=== PATIENT | female | born 2000 | race Caucasian/White ===

== ENCOUNTER 2022-06-08 07:53 | Emergency (ER) | payer OTHER ==
[~2022-06-08] VITALS: Ht 157.5 cm; Wt 52.3 kg
[2022-06-08] MEDS ORDERED: TETRAHYDROZOLINE HCL 0.05% 15 ML OPHTHALMIC SOLUTION OU ONE (09:30)
[2022-06-08 10:04] VITALS: BP 119/72
== END 2022-06-08 10:11 | disposition home or self-care (01) ==
LOC: EMS 08:00
DX: H10.11 Acute atopic conjunctivitis, right eye (principal); F17.210 Nicotine dependence, cigarettes, uncomplicated; Z91.013 Allergy to seafood
CPT/HCPCS: 99173; 99283

== ENCOUNTER 2024-12-15 08:47 | Emergency (ER) | payer OTHER ==
[~2024-12-15] VITALS: Ht 157.5 cm; Wt 58.2 kg
[2024-12-15 08:51] VITALS: TEMP 97.5
[2024-12-15] MEDS ORDERED: ASPI-1450 PO (08:54)
[2024-12-15] MEDS: ACETAMINOPHEN 500 MG TABLET PO ONE (09:09)
[2024-12-15 09:20] LABS: PLATELET COUNT (AUTO) 240 K/uL (150-450); RED BLOOD CELL COUNT(AUTO) 4.08 MIL/uL (4.00-5.20); RED CELL DISTRIBUTION WIDTH 13.5 % (11.5-14.5); WHITE BLOOD COUNT (AUTO) 13.1 K/uL (4.5-11.0)
[2024-12-15 09:22] LABS: COVID AG,FIA SOURCE NASAL SWAB
[2024-12-15 09:28] LABS: CALCIUM, TOTAL 8.8 mg/dL (8.8-10.5); CREATININE 0.60 mg/dL (0.60-1.30); GLOMERULAR FILTR. RATE CALC > 60 mL/min (>60); GLUCOSE,RANDOM 84 mg/dL (70-110); SODIUM SERUM 135 mmol/L (136-145); UREA NITROGEN, BLOOD 8 mg/dL (7-18)
[2024-12-15 09:31] LABS: APPEARANCE,URINE HAZY (CLEAR); GLUCOSE, URINE (UA) NEGATIVE (NEGATIVE); LEUKOCYTE ESTERASE ,URINE LARGE (NEGATIVE); NITRATE,URINE NEGATIVE (NEGATIVE); OCCULT BLOOD,URINE NEGATIVE (NEGATIVE); SPECIFIC GRAVITIY, URINE 1.029 (1.003-1.030)
[2024-12-15 09:36] LABS: RAPID GROUP A STREP NEGATIVE (NEGATIVE)
[2024-12-15 09:40] LABS: SARS-COV2 (COVID) ANTIGEN,FIA Negative (Negative)
[2024-12-15 09:46] LABS: SQUAMOUS EPITHELIAL CELL,UR Many /LPF (None Seen)
[2024-12-15 09:49] LABS: INFLUENZA TYPE A NEGATIVE FOR TYPE A (NEGATIVE); INFLUENZA TYPE B NEGATIVE FOR TYPE B (NEGATIVE)
[2024-12-15 09:57] LABS: ASPARTATE AMINOTRANSFERASE 14.0 U/L (15-37); HCG,QUANTITATIVE 16192.0 mIU/mL (0-6); TOTAL PROTEIN, SERUM 7.0 g/dL (6.4-8.2)
[2024-12-15] MEDS: CEPHALEXIN MONOHYDRATE 500 MG CAPSULE PO ONE (10:20)
[2024-12-15] MEDS ORDERED: ACET-3385 PO (10:34)
[2024-12-15] MEDS ORDERED: CEPH-558 PO (10:34)
[2024-12-15 10:45] VITALS: BP 111/65; PULSE 102; RESP 18; O2SAT 97
== END 2024-12-15 10:53 | disposition home or self-care (01) ==
LOC: EMS 08:52
DX: O26.892 Other specified pregnancy related conditions, second trimester (principal); R10.9 Unspecified abdominal pain; R51.9 Headache, unspecified; R42 Dizziness and giddiness; R82.71 Bacteriuria; Z79.82 Long term (current) use of aspirin; F17.210 Nicotine dependence, cigarettes, uncomplicated; N89.8 Other specified noninflammatory disorders of vagina; Z79.899 Other long term (current) drug therapy; Z3A.16 16 weeks gestation of pregnancy; Z20.822 Contact with and (suspected) exposure to COVID-19
CPT/HCPCS: 76805; 80048; 80076; 81001; 84702; 85025; 87086; 87430; 87804; 99284